=== PATIENT | female | born 1995 | race African-American/Black ===

== ENCOUNTER 2018-10-03 01:52 | Emergency (ER) | payer SELFPAY ==
[~2018-10-03] VITALS: Ht 167.6 cm; Wt 88.5 kg
[2018-10-03 02:06] VITALS: BP 134/86
--- NOTE | 2018-10-03 02:13 | Emergency Room Report ---
History of Present Illness General Chief Complaint: Flu Like Symptoms Source: Patient Present Illness HPI Is a 22-year-old female with no past mental history. She presents with 2 complaints. First complaint is headache. Has been ongoing for the last couple weeks. Diffuse in nature but mostly frontal. Now with congestion runny nose for the last 3 days. Also has abdominal cramps with vaginal bleeding. Her vaginal bleeding been heavy for the last week. Heavier than usual. More cramping than usual. No fever or chills. No trauma. Pain is 7 out of 10. No urinary complaint. Allergies: Coded Allergies: No Known Allergies (Unverified , 10/03/18) Patient History Past Medical History: none, see triage record, old chart reviewed Past Surgical History: none Pertinent Family History: none Social History: Denies: smoking Last Menstrual Period: 09-30-2018 Now: No Immunizations: other Reviewed Nursing Documentation: PMH: Agreed; PSxH: Agreed Nursing Documentation-PMH Past Medical History: No Stated History Review of Systems Eye: Denies: eye pain, blurred vision ENT: Reports: nose congestion; Denies: ear pain, throat swelling Respiratory: Denies: cough, shortness of breath Cardiovascular: Denies: chest pain, palpitations Gastrointestinal: Reports: abdominal pain; Denies: diarrhea, nausea, vomiting Genitourinary: Reports: vag bleed/dc Musculoskeletal: Denies: back pain, joint pain Skin: Denies: rash Neurological: Reports: headache; Denies: numbness Endocrine: Denies: increased thirst, increased urine Hematologic/Lymphatic: Denies: easy bruising All Other Systems: negative except mentioned in HPI Physical Exam Vital Signs Date Time Temp Pulse Resp B/P (MAP) Pulse Ox O2 Delivery O2 Flow Rate FiO2 10/03/18 01:58 98.2 77 16 134/86 98 Room Air 10/03/18 02:06 97 vitals normal Sp02 EP Interpretation: reviewed, normal General Appearance: well appearing, no apparent distress, alert Head: normocephalic, atraumatic Eyes: bilateral eye PERRL, bilateral eye EOMI ENT: hearing grossly normal, normal pharynx Neck: full range of motion, supple, no meningismus Respiratory: chest non-tender, lungs clear, normal breath sounds Cardiovascular #1: regular rate, rhythm, no murmur Gastrointestinal: normal bowel sounds, no mass, no organomegaly, no bruit, non- distended, tenderness - Mild, diffuse Musculoskeletal: back normal, gait/station normal, normal range of motion Psychiatric: mood/affect normal Skin: warm/dry Medical Decision Making Diagnostic Impression: Primary Impression: Sinus headache Additional Impressions: UTI (urinary tract infection) Qualified Codes: N30.00 - Acute cystitis without hematuria Dysfunctional uterine bleeding ER Course Patient presents with headache. This probably secondary to sinus headache. CT scan does show some right-sided sinus inflammation. No evidence of meningitis, bleed or neoplastic process. Patient felt better now. She has vaginal bleeding but hemoglobin stable. We'll discharge home. CT/MRI/US Diagnostic Results CT/MRI/US Diagnostic Results : Imaging Test Ordered: CT head Impression Read by radiologist. Right sinusitis Last Vital Signs Date Time Temp Pulse Resp B/P (MAP) Pulse Ox O2 Delivery O2 Flow Rate FiO2 10/03/18 02:06 98.2 85 16 134/86 98 Room Air 10/03/18 02:06 97 Status: improved Disposition: HOME, SELF-CARE Condition: Stable Scripts Pseudoephedrine Hcl* (SUDAFED*) 60 Mg Tablet 60 MG PO Q6H, #30 TAB Prov: Jt Nettles MD 10/03/18 Nitrofurantoin Monohyd/M-Cryst (Nitrofurantoin [place]-Mcr 100 mg) 100 Mg Capsule 100 MG ORAL Q12H, #14 CAP Prov: Jt Nettles MD 10/03/18 Ibuprofen* (MOTRIN*) 600 Mg Tablet 600 MG ORAL THREE TIMES A DAY, #30 TAB 0 Refills Prov: Jt Nettles MD 10/03/18 Additional Instructions: Follow-up with your doctor in 7 days. You may benefit from referral to see a slab lifting engineer. Return if symptom worsen. Jt Nettles MD Oct 03, 2018 02:13
[2018-10-03] MEDS ORDERED: Metoclopramide 10mg/2ml Inj IVP ONE (02:15)
[2018-10-03] MEDS ORDERED: Ketorolac 30mg Inj IV ONE (02:15)
--- NOTE | 2018-10-03 02:20 | NUR ---
ED Nurse Note: headaches x 2 weeks intermittent and increasing pain with menstrual cramps, pain at 8/10. pt abdomen sounds hypoactive on all 4 quadrants. pt also states that her last bowl movement was on wednesday, the 16. upon urine assesment, pt urine is light red. pt also states she has pain on her lower left abdomen during MD assessment and palpating. pt cardicat assessment with within normal limits with S1 and S2 noted. pulse and sensation is noted on all 4 extremities. cap refill is less than 3. Pt neuro assessment is alert and oriented times 4, pt pupils are round and reactive to light and accomodating. pt is able to walk with steady gait. pt resp assessment is within normal limits, all lung sounds are clear upon auscultation on all lung bases.
[2018-10-03 03:06] LABS: BILIRUBIN, URINE NEGATIVE (NEGATIVE); GLUCOSE, URINE (UA) NEGATIVE (NEGATIVE); KETONES,URINE 1+ (NEGATIVE); LEUKOCYTE ESTERASE ,URINE 2+ (NEGATIVE); NITRITE,URINE NEGATIVE (NEGATIVE); PH,URINE 5 (4.5-8.0); PROTEIN,URINE 3+ (NEGATIVE); UROBILINOGEN,URINE 1 MG/DL (0.0-1.0)
[2018-10-03 03:10] LABS: BASOPHILS % (AUTO) 3.1 % (0.0-2.0); EOSINOPHILS % (AUTO) 6.4 % (0.0-3.0); HEMATOCRIT 38.3 % (37.0-47.0); HEMOGLOBIN 12.6 G/DL (12.0-16.0); LYMPHOCYTES % (AUTO) 41.2 % (20.0-45.0); MEAN CORPUSCULAR VOLUME 80 FL (80-99); MONOCYTES % (AUTO) 10.4 % (1.0-10.0); NEUTROPHILS % (AUTO) 38.9 % (45.0-75.0); PLATELET COUNT 227 K/UL (150-450); RED BLOOD COUNT 4.77 M/UL (4.20-5.40); WHITE BLOOD COUNT 6.2 K/UL (4.8-10.8)
[2018-10-03 03:15] LABS: ANION GAP 10 mmol/L (5-15); APPEARANCE,URINE CLOUDY; BLOOD UREA NITROGEN 9 mg/dL (7-18); CALCIUM 8.9 MG/DL (8.5-10.1); CARBON DIOXIDE 25 MMOL/L (21-32); CHLORIDE 106 MMOL/L (98-107); COLOR,URINE AMBER; POTASSIUM 3.8 MMOL/L (3.5-5.1); SODIUM 141 MMOL/L (136-145)
[2018-10-03] MEDS ORDERED: cefTRIAXone 1 GM in NS 55 ML IVPB ONE (03:30)
[2018-10-03] MEDS ORDERED: PSEUDOEPHEDRINE60 MG PO (03:34)
[2018-10-03] MEDS ORDERED: IBUPROFEN600 MG ORAL (03:34)
[2018-10-03] MEDS ORDERED: MACROBID100 MG ORAL (03:34)
[2018-10-03 04:00] VITALS: BP 129/83
--- NOTE | 2018-10-03 04:00 | NUR ---
ER DISCHARGE NOTE: Patient is cleared to be discharged per ERMD, pt is aox4, on room air, with stable vital signs. pt was given dc and prescription instructions, pt was able to verbalize understanding, pt id band removed without complications. pt is able to ambulate with steady gait. pt took all belongings.
--- NOTE | 2018-10-03 12:49 | Diagnostic Imaging Report ---
Indications: Headache for 4 days Technique: Spiral acquisitions obtained through the brain. Angled axial and coronal 5 x 5 mm slices were reconstructed. Total dose length product 1332.74 mGycm. CTDI vol(s) 70.38 mGy. Dose reduction achieved using automated exposure control Comparison: None. Findings: No acute intracranial hemorrhage or edema. No mass effect nor midline shift. Normal garcía-white differentiation. Normal-sized ventricles and extra-axial CSF spaces. Intact calvarium. Visualized orbits are unremarkable. There is bilateral ethmoid and maxillary sinus disease. Impression: Negative for acute intracranial bleed or mass effect Sinus disease This agrees with the preliminary interpretation provided overnight by [facility]. The CT scanner at [facility] is accredited by the [employer] and the scans are performed using protocols designed to limit radiation exposure to as low as reasonably achievable to attain images of sufficient resolution adequate for diagnostic evaluation.
== END 2018-10-03 04:00 | disposition home or self-care (01) ==
LOC: EMR 02:21
DX: R51 Headache (principal); N39.0 Urinary tract infection, site not specified; N30.00 Acute cystitis without hematuria
CPT/HCPCS: 36415; 70450; 80048; 81001; 81025; 85025; 87086; 96361; 96365; 96375; 99284; J0696; J1885; J2765